=== PATIENT | female | born 1980 | race Caucasian/White ===

== ENCOUNTER 2016-06-21 07:05 | Day surgery (SDC) | payer OTHER ==
[~2016-06-21] VITALS: Ht 165.1 cm; Wt 66.4 kg
[~2016-06-21 07:05] MED LIST: ALLEGRA180 MG PO; AMOXICILLIN875 MG PO; BACTRIM,SEPT1 TABLET PO; BENTYL20 MG PO; CLONAZEPAM0.5 MG PO; CONCERTA18 MG PO; CONCERTA36 MG PO; FIORICET,ESG1 TABLET PO; FLONASE16 G1 BOTH NARES; FLOVENT 11120 INHALA IH; FLOVENT 44120 INHALA IH; GABAPENTIN300 MG PO; GABAPENTIN600 MG PO; GRALISE600 MG PO; IBUPROFEN600 MG PO; KEFLEX500 MG PO; LORTAB 5-325 M1 EACH PO; METHYLPHENIDATE18 MG PO; MOTRIN600 MG PO; MS CONTIN,ORAMO15 M1 PO; NEURONTIN300 MG PO; NOHOMEMEDS; NORCO 5/3251 TABLET PO; OMEPRAZOLE40 M1 PO; OXYCODONE HCL10 MG PO; PEN-VEE K,VEET500 MG PO; PERCOCET 5/31 TABLET PO; PREDNISONE20 MG PO; PREDNISONE50 MG PO; PRILOSEC40 MG PO; ROBITUSSIN100 MG/5 M PO; SAVELLA50 MG PO; SUDAFED 12-HOU120 MG PO; TRAMADOL HCL50 MG PO; ULTRAM50 MG PO; VALIUM2 MG PO; VITAMIN D31000 UNI2 PO; ZITHROMAX250 MG PO; ZOFRAN4 MG PO; amoxicillin
[2016-06-21 07:36] VITALS: BP 125/69
[2016-06-21 08:53] LABS: METH RESISTANT S AUREUS PCR NEGATIVE (NEGATIVE)
[2016-06-21 08:56] LABS: PROBE CHECK PASS; SPECIMEN PROCESSING CONTROL PASS
[2016-06-21 13:17] VITALS: BP 106/64
[2016-06-21 15:51] VITALS: BP 123/67
[2016-06-21 20:52] VITALS: BP 110/56
[2016-06-22 00:46] VITALS: BP 110/59
[2016-06-22 04:08] VITALS: BP 121/67
[2016-06-22 08:00] VITALS: BP 109/60
[2016-06-22 08:19] LABS: HEMATOCRIT 31.6 % (36.0-46.0); MCH 28.8 PG (29.0-34.0); MCHC 33.2 G/DL (30.0-36.0); MCV 86.6 FL (83-99); MEAN PLAT.VOLUME 11.3 uM^3 (9.5-12.4); PLATELET COUNT 203 K/uL (156-360); RBC DIS.WIDTH-CV 11.7 % (11.8-14.6); RED BLOOD COUNT 3.65 M/uL (3.80-5.20); WHITE BLOOD COUNT 9.3 K/uL (4.1-10.2)
[2016-06-22] MEDS ORDERED: ENDOCET 7.5-321 EACH PO (09:18)
== END 2016-06-22 10:47 | disposition home or self-care (01) ==
LOC: SDC 07:05 → 2SOUTH 11:05 → 2EAST 11:05 → SDC 15:24 → 2EAST 06-22 10:47
PROVIDERS: Obstetrics & Gynecology Obstetrics
DX: N92.0 Excessive and frequent menstruation with regular cycle (principal); N83.8 Other noninflammatory disorders of ovary, fallopian tube and broad ligament; N94.6 Dysmenorrhea, unspecified; J45.909 Unspecified asthma, uncomplicated; F98.8 Other specified behavioral and emotional disorders with onset usually occurring in childhood and adolescence; K22.70 Barrett's esophagus without dysplasia; E78.5 Hyperlipidemia, unspecified; F17.200 Nicotine dependence, unspecified, uncomplicated; Z82.49 Family history of ischemic heart disease and other diseases of the circulatory system; Z83.49 Family history of other endocrine, nutritional and metabolic diseases; Z80.3 Family history of malignant neoplasm of breast; Z83.3 Family history of diabetes mellitus; Z88.5 Allergy status to narcotic agent; Z88.8 Allergy status to other drugs, medicaments and biological substances; Z88.6 Allergy status to analgesic agent
CPT/HCPCS: 85027; 87641; 88307; G0378; J0330; J0690; J1100; J1170; J1885; J2405; J2710; J3010; J7050; J7120; S0020; S0074